=== PATIENT | male | born 1990 | race Caucasian/White ===

== ENCOUNTER 2023-11-16 16:53 | Emergency (ER) | payer SELFPAY ==
[2023-11-16 17:03] VITALS: BP 154/80; PULSE 77; TEMP 37; O2SAT 97; BMI 29.4
--- NOTE | 2023-11-16 17:10 | ED_ITS ---
HPI HPI - General Adult General Chief complaint: Nausea/Vomiting/Diarrhea Stated complaint: Nausea/Vomiting, Fever Time Seen by Provider: 11/16/23 16:56 Source: patient Mode of arrival: walk-in Limitations: no limitations History of Present Illness HPI narrative: Patient is a pleasant 33-year-old male who presents to the ER for work clearance. He reports flulike illness over the last several days. He states he is feeling better today, but he had to miss work and does not have a primary care provider who could provide him with a work excuse. He reports subjective fever, vomiting and occasional diarrhea with some abdominal cramping. He has had no significant cough or congestion. No sick contacts in the home. He denies any significant discomfort in the abdomen at this time, he reports just mild nausea. No urinary symptoms, flank or back pain. Related Data Previous Rx's ?Medication ?Instructions ?Recorded hyoscyamine sulfate 0.125 mg 0.125 mg PO Q6H PRN abdominal pain 11/16/23 tablet (Levsin) #12 tabs ondansetron 4 mg disintegrating 4 mg PO Q6H PRN nausea and 11/16/23 tablet vomiting #12 tabs Allergies Allergy/AdvReac Type Severity Reaction Status Date / Time No Known Drug Allergies Allergy Verified 11/16/23 17:03 Opioid HPI Opioid Management Most Recent Opioid Data: No Data to Display Review of Systems ROS Constitutional Reports: fever and chills Ears, nose, mouth, and throat Denies: throat pain or nasal congestion Respiratory Denies: shortness of breath Gastrointestinal Reports: abdominal pain, nausea, vomiting and diarrhea Musculoskeletal Denies: back pain or neck pain Neurological Denies: numbness in extremities or weakness in extremities Hematologic/Lymphatic Denies: easy bruising or easy bleeding PFSH PFSH Social History Little interest or pleasure in doing things: not at all Feeling down, depressed, or hopeless: not at all Exam Narrative Exam Narrative: Gen.: Awake, alert, in no distress Head: Normocephalic, atraumatic ENT: Moist mucous membranes, TMs clear, no pharyngeal erythema Respiratory: No respiratory distress, lungs clear bilaterally Cardio: Regular rate and rhythm Gastrointestinal: Abdomen is soft, nondistended and nontender to palpation Extremities: Moves extremities equally Psych: Normal mood and affect Neuro: No focal neuro deficit Skin: Warm, dry, intact Constitutional Vital Signs, click to edit/add: Last Vital Signs Temp 98.6 F 11/16/23 17:03 Pulse 77 11/16/23 17:03 Resp 18 11/16/23 17:03 BP 154/80 H 11/16/23 17:03 Pulse Ox 97 11/16/23 17:03 O2 Del Method Room Air 11/16/23 17:03 Course Vital Signs Vital signs: Vital Signs Temperature 98.6 F 11/16/23 17:03 Pulse Rate 77 11/16/23 17:03 Respiratory Rate 18 11/16/23 17:03 Blood Pressure 154/80 H 11/16/23 17:03 Pulse Oximetry 97 11/16/23 17:03 Oxygen Delivery Method Room Air 11/16/23 17:03 Temperature 98.6 F 11/16/23 17:03 Pulse Rate 77 11/16/23 17:03 Respiratory Rate 18 11/16/23 17:03 Blood Pressure 154/80 H 11/16/23 17:03 Pulse Oximetry 97 11/16/23 17:03 Oxygen Delivery Method Room Air 11/16/23 17:03 Medical Decision Making MDM Narrative Medical decision making narrative: I discussed with the patient that to further evaluate his symptoms, we would need to obtain labs, possibly viral swabs and potentially imaging of the abdomen. Patient states that he does not have any significant symptoms at this time, he is feeling better and was able to hold down his medications and start drinking fluids today. He would like to defer additional workup at this time, I feel this is reasonable as he is hemodynamically stable with a benign exam and normal vital signs. He understands that if his symptoms worsen or change, he should be reevaluated and have a workup at that time. He was provided with a work excuse, prescriptions for Levsin and Zofran. Follow-up with primary care and return to the ER if symptoms change or worsen SUPERVISED APC VISIT, PHYSICIAN ATTESTATION: Based on the medical record the care appears appropriate. ? Medical Records Medical records reviewed: Yes I reviewed the patient's medical records Discharge Plan Discharge Chief Complaint: Nausea/Vomiting/Diarrhea Clinical Impression: Flu-like symptoms Patient Disposition: Home, Self-Care Time of Disposition Decision: 17:11 Condition: Good Prescriptions / Home Meds: New hyoscyamine sulfate [Levsin] 0.125 mg tablet 0.125 mg PO Q6H PRN (Reason: abdominal pain) Qty: 12 0RF ondansetron 4 mg tablet,disintegrating 4 mg PO Q6H PRN (Reason: nausea and vomiting) Qty: 12 0RF Print Language: Ukrainian Instructions: Acute Nausea and Vomiting (ED) Additional Instructions: Please increase your fluids over the next 24-48 hours. If your symptoms change or worsen, please return to the ER or see your doctor for reevaluation Referrals: Efrain Ruvalcaba NP [Primary Care Provider] - 1 week
== END 2023-11-16 17:15 | disposition home or self-care (01) ==
PROVIDERS: Emergency Provider Emergency Medicine; PCP Nurse Practitioner Primary Care
DX: J11.1 Influenza due to unidentified influenza virus with other respiratory manifestations (principal)
CPT/HCPCS: 99283

== ENCOUNTER 2024-03-30 14:51 | Emergency (ER) | payer OTHER, SELFPAY ==
--- NOTE | 2024-03-30 14:52 | ECG_ITS ---
[facility] Test Date: 2024-03-30 Pat Name: MARTITA JON Department: Room: - Gender: Male [employer] Work[employer]: : 1990 Requested By: [id number] Order Number: [id number] Reading MD: GUSTAVO CLARK Measurements Intervals [place] Rate: 64 P: 74 SD: 114 QRS: 84 QRSD: 92 T: 55 QT: 418 QTc: 427 Interpretive Statements 1100 Sinus rhythm 2210 Short SD interval 9150 abnormal ECG Compared to ECG 04/17/2022 07:33:35 Short SD interval now present Electronically Signed On 03-31-2024 7:52:39 EST by GUSTAVO CLARK
[2024-03-30 14:56] VITALS: BP 140/88; PULSE 65; TEMP 37; O2SAT 100; BMI 28.0
--- NOTE | 2024-03-30 15:04 | ED_ITS ---
HPI HPI - General Adult General Chief complaint: Chest Pain Stated complaint: chest pain Time Seen by Provider: 03/30/24 14:52 Source: patient Mode of arrival: walk-in Limitations: no limitations History of Present Illness HPI narrative: Patient is a 33-year-old male who presents to the emergency department for chest pain, shortness of breath and vomiting. Patient states he woke up today with pain in the sternal area of his chest associated with shortness of breath. He states he drank a lot of alcohol last night, he has now begun vomiting. He has not had any fevers, cough, congestion, hemoptysis. He has not had any other recent illness. He denies any history of heart or lung problems, blood clots. He has not had any extremity swelling, vital signs are stable on arrival. He has not seen any blood in his emesis. He is dry heaving at time of evaluation. Related Data Home Medications ?Medication ?Instructions ?Recorded ?Confirmed buspirone 10 mg tablet 10 mg PO BID 03/30/24 03/30/24 hydroxyzine pamoate 25 mg capsule 25 mg PO BID PRN anxiety 03/30/24 03/30/24 sertraline 100 mg tablet 100 mg PO DAILY 03/30/24 03/30/24 Previous Rx's ?Medication ?Instructions ?Recorded ondansetron 4 mg disintegrating 4 mg PO Q6H PRN nausea and 03/30/24 tablet vomiting #12 tabs pantoprazole 40 mg tablet,delayed 40 mg PO DAILY #7 tabs 03/30/24 release (Protonix) Allergies Allergy/AdvReac Type Severity Reaction Status Date / Time No Known Drug Allergies Allergy Verified 11/16/23 17:03 Opioid HPI Opioid Management Most Recent Opioid Data: No Data to Display Review of Systems ROS Constitutional Denies: fever or chills Ears, nose, mouth, and throat Denies: throat pain or nasal congestion Cardiovascular Reports: chest pain Respiratory Reports: shortness of breath; Denies: cough Gastrointestinal Reports: nausea and vomiting; Denies: abdominal pain or diarrhea Integumentary/Breast Denies: rash Neurological Denies: numbness in extremities or weakness in extremities Hematologic/Lymphatic Denies: easy bruising or easy bleeding PFSH PFSH Social History Little interest or pleasure in doing things: not at all Feeling down, depressed, or hopeless: not at all Exam Narrative Exam Narrative: Gen.: Awake, alert, in no distress, active bilious vomiting and dry heaving Head: Normocephalic, atraumatic ENT: Moist mucous membranes Respiratory: No respiratory distress, lungs clear bilaterally Cardio: Regular rate and rhythm Gastrointestinal: Abdominal exam is limited due to vomiting, nontender Extremities: Moves extremities equally Psych: Normal mood and affect Neuro: No focal neuro deficit Skin: Warm, dry, intact Constitutional Vital Signs, click to edit/add: Last Vital Signs Temp 98.6 F 03/30/24 14:56 Pulse 70 03/30/24 16:11 Resp 20 03/30/24 16:11 BP 133/81 03/30/24 16:11 Pulse Ox 99 03/30/24 16:11 O2 Del Method Room Air 03/30/24 16:11 Course Vital Signs Vital signs: Vital Signs Temperature 98.6 F 03/30/24 14:56 Pulse Rate 65 03/30/24 14:56 Respiratory Rate 18 03/30/24 14:56 Blood Pressure 140/88 03/30/24 14:56 Pulse Oximetry 100 03/30/24 14:56 Oxygen Delivery Method Room Air 03/30/24 14:56 Temperature 98.6 F 03/30/24 14:56 Pulse Rate 70 03/30/24 16:11 Respiratory Rate 20 03/30/24 16:11 Blood Pressure 133/81 03/30/24 16:11 Pulse Oximetry 99 03/30/24 16:11 Oxygen Delivery Method Room Air 03/30/24 16:11 Medical Decision Making [facility] Narrative Medical decision making narrative: Patient given IV fluids, Zofran and Protonix with improvement. He was able to drink Gatorade in the ER without emesis. He is hemodynamically stable with normal vital signs. He has no PE risk factors. EKG is unremarkable and labs including troponin are within normal limits, lactate is elevated and lipase is minimally elevated however not high enough to qualify for acute pancreatitis. Patient will be placed on Zofran and Protonix for home. Follow-up with PCP and return to the ER if symptoms change or worsen SHARED APC VISIT, PHYSICIAN ATTESTATION: [id number] I performed a substantive part of the MDM during the patient?s E/M visit. I personally evaluated and examined the patient. I personally made or approved the documented management plan and acknowledge its risk of complications. Medical Records Medical records reviewed: Yes I reviewed the patient's medical records Lab Data Lab results reviewed: Yes I reviewed the patient's lab results Labs: Lab Results 03/30/24 03/30/24 Range/Units 15:10 15:28 WBC 7.9 (4.0-11.0) 10^3/uL RBC 5.52 (4.70-6.10) 10^6/uL Hgb 17.0 (14.0-18.0) g/dL Hct 48.3 (42.0-54.0) % MCV 87.5 (80.0-94.0) fL MCH 30.8 (25.9-34.0) pg MCHC 35.2 (29.9-35.2) g/dL RDW 12.5 (11.0-15.0) % Plt Count 293 (150-450) 10^3/uL MPV 10.6 (9.5-13.5) fL Neut % (Auto) 59.8 (43.0-75.0) % Lymph % (Auto) 28.4 (20.5-60.0) % [place] % (Auto) 6.1 (1.7-12.0) % Eos % (Auto) 4.3 (0.9-7.0) % Baso % (Auto) 1.0 (0.2-2.0) % Neut # (Auto) 4.7 (1.4-6.5) 10^3/uL Lymph # (Auto) 2.2 (1.2-3.8) 10^3/uL [place] # (Auto) 0.5 (0.3-0.8) 10^3/uL Eos # (Auto) 0.3 (0.0-0.7) 10^3/uL Baso # (Auto) 0.1 (0.0-0.1) 10^3/uL Abs Immat Gran (auto) 0.03 (0.00-0.03) 10^3/uL Imm/Tot Granulo (auto) 0.4 (0.0-0.5) % PT 11.6 (9.0-11.6) sec INR 1.11 Sodium 141 (136-145) mmol/L Potassium 3.6 (3.5-5.1) mmol/L Chloride 104 (98-107) mmol/L Carbon Dioxide 25.2 (21.0-32.0) mmol/L Anion Gap 15.4 BUN 11.0 (7.0-18.0) mg/dL Creatinine 1.07 (0.70-1.30) mg/dL Est GFR ( Amer) >60 (>=60 mL/min/1.73m^2) Est GFR (Non-Af Amer) >60 (>=60 mL/min/1.73m^2) BUN/Creatinine Ratio 10.3 Glucose 109 H (74-106) mg/dL Lactate 2.6 H* (0.4-2.0) mmol/L Calcium 9.5 (8.5-10.1) mg/dL Magnesium 1.7 L (1.8-2.4) mg/dL Total Bilirubin 0.8 (0.2-1.0) mg/dL AST 24 (15-37) U/L ALT 28 (16-63) U/L Alkaline Phosphatase 89 (46-116) U/L Troponin I High Sens <4.0 L (4.0-76.1) pg/mL NT-Pro-B Natriuret Pep 74.0 (<=450.0) pg/mL Total Protein 8.0 (6.4-8.2) g/dL Albumin 4.6 (3.4-5.0) g/dL Globulin 3.4 g/dL Albumin/Globulin Ratio 1.4 Lipase 107.0 H (16.0-77.0) U/L Imaging Data Chest x-ray: Attestation: I have reviewed the pertinent imaging results. ECG Data Attestation: I personally reviewed and interpreted this ECG as follows: (Normal sinus rhythm at a rate of 64, no acute ST elevation or ectopy. EKG reviewed by attending physician.) Discharge Plan Discharge Chief Complaint: Chest Pain Clinical Impression: Chest pain, Gastritis, Nausea & vomiting Patient Disposition: Home, Self-Care Time of Disposition Decision: 16:18 Condition: Good Prescriptions / Home Meds: New pantoprazole [Protonix] 40 mg tablet,delayed release (DR/EC) 40 mg PO DAILY Qty: 7 0RF ondansetron 4 mg tablet,disintegrating 4 mg PO Q6H PRN (Reason: nausea and vomiting) Qty: 12 0RF No Action buspirone 10 mg tablet 10 mg PO BID sertraline 100 mg tablet 100 mg PO DAILY hydroxyzine pamoate 25 mg capsule 25 mg PO BID PRN (Reason: anxiety) Print Language: Somali Instructions: Acute Nausea and Vomiting (ED), Noncardiac Chest Pain (ED) Referrals: Physician,Non-Staff, MD [Primary Care Provider] - 1 week
--- OUTSIDE RECORDS SUMMARY | 2024-03-30 15:09 | XMS_ITS | CCD ---
Author Organization [facility] CliniSyde Care Team Providers Care Roller Operator Name Role Phone RejiYazmin sanchez Vince Primary Care Physician CESAR OLIVARES Attending Unavailable GRACY ., CESAR Consulting Unavailable GRACY ., CESAR Admitting Unavailable REQUEST, NONE LISTED Primary Care Unavaila CORINA Pink Consulting Unavailable DIAB ., ASAF Attending Unavailable FIDEL ., ASAF Admitting Unavailable REQUEST, NONE LISTED Primary Care Unavaila ble DIAB ., ASAF Consulting Unavailable Husam DESHPANDE Attending Unavailable Problems Problem Classification Problem Date Documented Da te Episodic/Chronic Anxiety disorders (6 sources) Anxiety disorder; Translations: [Anxiety disorder, unspecified] Onset: 04-12-2022 Chronic Esophageal disorders (1 source) Gastro-esophageal reflux disease without esophagitis; Translations: [GERD WITHOUT ESOPHAGITIS] Onset: 04-15-2022 Chronic Nonspecific chest pain (5 sources) Chest pain; Translations: [Chest pain, unspecified] Onset: 04-12-2022 Episodic Other aftercare (1 source) Other fpc (current) drug therapy; Translations: [OTH ALF CURRENT DRUG THERAPY] Onset: 04-19-2022 Episodic Substance-related disorders (1 source) Nicotine dependence, cigarettes, uncomplicated; Translations: [NICOTINE DEPEND CIGARETTES UNCOMP] Onset: 04-15-2022 Chronic Results Test Name Value Interpretation Reference Range Facility Registrationon 06-08-2023 Registration [id number]# 1.00TIFF Normal [facility] XR CHEST 1 Von 04-14-2022 XR CHEST 1 V EXAM: XR CHEST 1 V HISTORY: CHEST PAIN, UNSPECIFIED COMPARISON: None. FINDINGS: 1 view(s) of the chest. The lungs are clear without focal consolidation or pleural effusion. There is no pneumothorax. The cardiomediastinal silhouette is normal. IMPRESSION: No acute cardiopulmonary abnormality. Electronically authenticated by: CORINA HUERTA Date: 2022-04-13 23:43 Normal [facility] [place] CHEMISTRYOrdered By: SYSTEM SYSTEM on 04-12-2022 Anion gap [Moles/Vol] 16 mmol/L Normal 6 - 16 mEq/L [facility] Calcium [Mass/Vol] 9.4 mg/dL Normal 8.9 - 11. 1 mg/dL [facility] Remisol Chloride [Moles/Vol] 103 mmol/L Normal 101 - 1 11 mmol/L [facility] CO2 [Moles/Vol] 23 mmol/L Normal 21 - 31 mmol/L [facility] Creatinine [Mass/Vol] 0.8 mg/dL Normal 0.5 - 1.3 mg/dL [facility] Remisol GFR/1.73 sq M.predicted among blacks MDRD (S/P/Bld) [Vol rate/Area] mL/min/1.73 m2 Normal >=59mL/min/1.7 3 m2 [facility] Chem S GFR/1.73 sq M.predicted among non-blacks MDRD (S/P/Bld) [Vol rate/Area] mL/min/1.73 m2 Normal >=59mL/min/1.7 3 m2 [facility] Chem S Glucose [Mass/Vol] 92 mg/dL Normal 55 - 199 mg/dL [facility] Remisol Potassium [Moles/Vol] 4.1 mmol/L Normal 3.5 - 5.3 mmol/L [facility]isol Sodium [Moles/Vol] 138 mmol/L Normal 135 - 145 mmol/L [facility] Troponin I.cardiac [Mass/Vol] 3.00 pg/mL Low 15.90 - 38.40 pg/mL [facility] Urea nitrogen [Mass/Vol] 7 mg/dL Normal 5 - 21 mg/dL [facility] Urea nitrogen/Creatinine [Mass ratio] 9 mg/mg Low 10 - 20 [facility] Remisol HEMATOLOGYOrdered By: SYSTEM SYSTEM on 04-12-2022 Basophils/100 WBC (Bld) 0.6 % Normal 0.0 - 2.0 % FT HemeAutoSS Basophils/Leukocytes Auto (Bld) [Pure # fraction] 0.0 E9/L Normal 0.0 - 0.2 E9/L [facility] HemeAutoSS Eosinophils/100 WBC (Bld) 3.2 % Normal 0.0 - 8.0 % [facility] HemeAutoSS Eosinophils/Leukocytes Auto (Bld) [Pure # fraction] 0.2 E9/L Normal 0.0 - 0.5 E9/L [facility] HemeAutoSS Lymphocytes/100 WBC (Bld) 24.8 % Normal 14.0 - 50.0 % [facility] HemeAutoSS Lymphocytes/Leukocytes Auto (Bld) [Pure # fraction] 1.7 E9/L Normal 1.0 - 4.0 E9/L [facility] HemeAutoSS Monocytes/100 WBC (Bld) 7.2 % Normal 4.0 - 14.0 % [facility] HemeAutoSS Monocytes/Leukocytes Auto (Bld) [Pure # fraction] 0.5 E9/L Normal 0.2 - 1.0 E9/L [facility] HemeAutoSS Neutrophils/100 WBC (Bld) 64.2 % Normal 36.0 - 75.0 % [facility] HemeAutoSS Neutrophils/Leukocytes Auto (Bld) [Pure # fraction] 4.4 E9/L Normal 2.0 - 7.5 E9/L [facility] HemeAutoSS HEMATOLOGYOrdered By: Ghada Leon on 04-12-2022 Erythrocyte distribution width (RBC) [Ratio] 13.5 % Normal 10.9 - 14.2 % [facility] HemeAutoSS Hematocrit (Bld) [Volume fraction] 44.7 % Normal 37.7 - 49.0 % [facility] HemeAutoSS Hemoglobin (Bld) [Mass/Vol] 15.1 g/dL Normal 13.5 - 17.5 gm/dL [facility] HemeAutoSS MCH (RBC) [Entitic mass] 29.9 pg Normal 27.0 - 34.0 pg [facility]eAutoSS MCHC (RBC) [Mass/Vol] 33.9 g/dL Normal 31.4 - 36.0 gm/dL [facility] HemeAutoSS MCV (RBC) [Entitic vol] 88.2 fL Normal 80.0 - 100.0 fL [facility] HemeAutoSS Platelet mean volume (Bld) [Entitic vol] 8.4 fL Normal 6.4 - 10.8 fL [facility] HemeAutoSS Platelets (Bld) [#/Vol] 212.0 E9/L Normal 150.0 - 500.0 E9/L [facility] HemeAutoSS RBC (Bld) [#/Vol] 5.1 E12/L Normal 4.3 - 5.9 E12/L [facility] HemeAutoSS WBC corrected for nucl RBC Auto (Bld) [#/Vol] 6.9 E9/L Normal 4.0 - 11.0 E9/L [facility] HemeAutoSS Vital Signs Date Time Vital Sign Value Performing Clinician Jose Daniel acuña 04-12-2022 13:00-0500 Diastolic blood pressure 58 mm[Hg] [facility] 04-12-2022 13:00-0500 Heart rate 84 /min [facility] 04-12-2022 13:00-0500 Mean blood pressure 66 mm[Hg] [facility] 04-12-2022 13:00-0500 Respiratory rate 14 /min [facility] 04-12-2022 13:00-0500 SaO2% (BldA) [Mass fraction] 98 % [facility] 04-12-2022 13:00-0500 Systolic blood pressure 82 mm[Hg] [facility] 04-12-2022 12:59-0500 Hourly Rounding [facility] 04-12-2022 12:00-0500 Diastolic blood pressure 85 mm[Hg] [facility] 04-12-2022 12:00-0500 Heart rate 82 /min [facility] 04-12-2022 12:00-0500 Hourly Rounding [facility] 04-12-2022 12:00-0500 Mean blood pressure 98 mm[Hg] [facility] 04-12-2022 12:00-0500 Systolic blood pressure 123 mm[Hg] [facility] 04-12-2022 11:17-0500 Diastolic blood pressure 77 mm[Hg] [facility] 04-12-2022 11:17-0500 Heart rate 72 /min [facility] 04-12-2022 11:17-0500 Hourly Rounding [facility] 04-12-2022 11:17-0500 Mean blood pressure 89 mm[Hg] [facility] 04-12-2022 11:17-0500 Respiratory rate 18 /min [facility] 04-12-2022 11:17-0500 SaO2% (BldA) [Mass fraction] 99 % [facility] 04-12-2022 11:17-0500 Systolic blood pressure 113 mm[Hg] [facility] 04-12-2022 09:53-0500 Body temperature 98.6 [degF] [facility] 04-12-2022 09:53-0500 Heart rate 77 /min [facility] Encounters Encounter Date Encounter Type Care Provider Facility Start: 06-29-2023 End: 06-29-2023 ambulatory Not Available Start: 06-08-2023 End: 06-09-2023 ambulatory Husam DESHPANDE Facility:[facility] Start: 04-17-2022 End: 04-17-2022 ambulatory CESAR Dobbs Facility: Start: 04-14-2022 End: 04-14-2022 ambulatory CORINA HUERTA Facility:[facility] Start: 04-12-2022 End: 04-12-2022 Emergency department patient visit [facility] Payers Date Payer Category Payer Self-pay 1990 Unknown [id number] 1990 Unknown [id number] 1990 Unknown [id number] 1957 Medicaid [id number] 1957 Self-pay [id number] Social History Date Type Detail Facility Start: 04-12-2022 Tobacco smoking status Never s moked tobacco (finding) [facility] Tobacco smoking status Never [facility] Sex Assigned At Male [facility] Functional Status Date Assessment Result Facility 04-12-2022 Functional Status N/A [facility] Discharge instructions 04-12-2022 Note Date & Type Note Facility 04-12-2022 Hospital Discharg e instructions Patient Education 04/12/2022 13:04:38 Nonspecific Chest Pain, Adult Nonspecific Chest Pain, Adult Chest pain can be caused by many different conditions. It can be caused by a condition that is life-threatening and requires treatment right away. It can also be caused by something that is not life-threatening. If you have chest pain, it can be hard to know the difference, so it is important to get help right away to make sure that you do not have a serious condition. Some life-threatening causes of chest pain include: Heart attack. A tear in the body's main blood vessel (aortic dissection). Inflammation around your heart (pericarditis). A problem in the lungs, such as a blood clot (pulmonary embolism) or a collapsed lung (pneumothorax). Some non life-threatening causes of chest pain include: Heartburn. Anxiety or stress. Damage to the bones, muscles, and cartilage that make up your chest wall. Pneumonia or bronchitis. Shingles infection (varicella-zoster virus). Chest pain can feel like: Pain or discomfort on the surface of your chest or deep in your chest. Crushing, pressure, aching, or squeezing pain. Burning or tingling. Dull or sharp pain that is worse when you move, cough, or take a deep breath. Pain or discomfort that is also felt in your back, neck, jaw, shoulder, or arm, or pain that spreads to any of these areas. Your chest pain may come and go. It may also be constant. Your health care provider will do lab tests and other studies to find the cause of your pain. Treatment will depend on the cause of your chest pain. Follow these instructions at home: Medicines Take enhx-zcv-slvgagw and prescription medicines only as told by your health care provider. If you were prescribed an antibiotic, take it as told by your health care provider. Do not stop taking the antibiotic even if you start to feel better. Lifestyle Rest as directed by your health care provider. Do not use any products that contain nicotine or tobacco, such as cigarettes and e-cigarettes. If you need help quitting, ask your health care provider. Do not drink alcohol. Make healthy lifestyle choices as recommended. These may include: ?Getting regular exercise. Ask your health care provider to suggest some activities that are safe for you. ?Eating a heart-healthy diet. This includes plenty of fresh fruits and vegetables, whole grains, low-fat (lean) protein, and low-fat dairy products. A dietitian can help you find healthy eating options. ?Maintaining a healthy weight. ?Managing any other health conditions you have, such as high blood pressure (hypertension) or diabetes. ?Reducing stress, such as with yoga or relaxation techniques. General instructions Pay attention to any changes in your symptoms. Tell your health care provider about them or any new symptoms. Avoid any activities that cause chest pain. Keep all follow-up visits as told by your health care provider. This is important. This includes visits for any further testing if your chest pain does not go away. Contact a health care provider if: Your chest pain does not go away. You feel depressed. You have a fever. Get help right away if: Your chest pain gets worse. You have a cough that gets worse, or you cough up blood. You have severe pain in your abdomen. You faint. You have sudden, unexplained chest discomfort. You have sudden, unexplained discomfort in your arms, back, neck, or jaw. You have shortness of breath at any time. You suddenly start to sweat, or your skin gets clammy. You feel nausea or you vomit. You suddenly feel lightheaded or dizzy. You have severe weakness, or unexplained weakness or fatigue. Your heart begins to beat quickly, or it feels like it is skipping beats. These symptoms may represent a serious problem that is an emergency. Do not wait to see if the symptoms will go away. Get medical help right away. Call your local emergency services (911 in the [place] Do not drive yourself to the hospital. Summary Chest pain can be caused by a condition that is serious and requires urgent treatment. It may also be caused by something that is not life-threatening. If you have chest pain, it is very important to see your health care provider. Your health care provider may do lab tests and other studies to find the cause of your pain. Follow your health care provider's instructions on taking medicines, making lifestyle changes, and getting emergency treatment if symptoms become worse. Keep all follow-up visits as told by your health care provider. This includes visits for any further testing if your chest pain does not go away. This information is not intended to replace advice given to you by your health care provider. Make sure you discuss any questions you have with your health care provider. Document Released: 11/03/2005 Document Revised: 07/27/2018 Document Reviewed: 07/27/2018 [employer] Patient Education 2020 [employer]. 04/12/2022 13:04:38 Managing Anxiety, Adult Managing Anxiety, Adult After being diagnosed with an anxiety disorder, you may be relieved to know why you have felt or behaved a certain way. You may also feel overwhelmed about the treatment ahead and what it will mean for your life. With care and support, you can manage this condition and recover from it. How to manage lifestyle changes Managing stress and anxiety Stress is your body's reaction to life changes and events, both good and bad. Most stress will last just a few hours, but stress can be ongoing and can lead to more than just stress. Although stress can play a major role in anxiety, it is not the same as anxiety. Stress is usually caused by something external, such as a deadline, test, or competition. Stress normally passes after the triggering event has ended. Anxiety is caused by something internal, such as imagining a terrible outcome or worrying that something will go wrong that will devastate you. Anxiety often does not go away even after the triggering event is over, and it can become long-term (chronic) worry. It is important to understand the differences between stress and anxiety and to manage your stress effectively so that it does not lead to an anxious response. Talk with your health care provider or a counselor to learn more about reducing anxiety and stress. He or she may suggest tension reduction techniques, such as: Music therapy. This can include creating or listening to music that you enjoy and that inspires you. Mindfulness-based meditation. This involves being aware of your normal breaths while not trying to control your breathing. It can be done while sitting or walking. Centering prayer. This involves focusing on a word, phrase, or sacred image that means something to you and brings you peace. Deep breathing. To do this, expand your stomach and inhale slowly through your nose. Hold your breath for 3 5 seconds. Then exhale slowly, letting your stomach muscles relax. Self-talk. This involves identifying thought patterns that lead to anxiety reactions and changing those patterns. Muscle relaxation. This involves tensing muscles and then relaxing them. Choose a tension reduction technique that suits your lifestyle and personality. These techniques take time and practice. Set aside 5 15 minutes a day to do them. Therapists can offer counseling and training in these techniques. The training to help with anxiety may be covered by some insurance plans. Other things you can do to manage stress and anxiety include: Keeping a stress/anxiety diary. This can help you learn what triggers your reaction and then learn ways to manage your response. Thinking about how you react to certain situations. You may not be able to control everything, but you can control your response. Making time for activities that help you relax and not feeling guilty about spending your time in this way. Visual imagery and yoga can help you stay calm and relax. Medicines Medicines can help ease symptoms. Medicines for anxiety include: Anti-anxiety drugs. Antidepressants. Medicines are often used as a primary treatment for anxiety disorder. Medicines will be prescribed by a health care provider. When used together, medicines, psychotherapy, and tension reduction techniques may be the most effective treatment. Relationships Relationships can play a big part in helping you recover. Try to spend more time connecting with trusted friends and family members. Consider going to couples counseling, taking family education classes, or going to family therapy. Therapy can help you and others better understand your condition. How to recognize changes in your anxiety Everyone responds differently to treatment for anxiety. Recovery from anxiety happens when symptoms decrease and stop interfering with your daily activities at home or work. This may mean that you will start to: Have better concentration and focus. Worry will interfere less in your daily thinking. Sleep better. Be less irritable. Have more energy. Have improved memory. It is important to recognize when your condition is getting worse. Contact your health care provider if your symptoms interfere with home or work and you feel like your condition is not improving. Follow these instructions at home: Activity Exercise. Most adults should do the following: ?Exercise for at least 150 minutes each week. The exercise should increase your heart rate and make you sweat (moderate-intensity exercise). ?Strengthening exercises at least twice a week. Get the right amount and quality of sleep. Most adults need 7 9 hours of sleep each night. Lifestyle Eat a healthy diet that includes plenty of vegetables, fruits, whole grains, low-fat dairy products, and lean protein. Do not eat a lot of foods that are high in solid fats, added sugars, or salt. Make choices that simplify your life. Do not use any products that contain nicotine or tobacco, such as cigarettes, e-cigarettes, and chewing tobacco. If you need help quitting, ask your health care provider. Avoid caffeine, alcohol, and certain szdz-qwn-wwqbctt cold medicines. These may make you feel worse. Ask your pharmacist which medicines to avoid. General instructions Take hkuj-ihq-atyjjwm and prescription medicines only as told by your health care provider. Keep all follow-up visits as told by your health care provider. This is important. Where to find support You can get help and support from these sources: Self-help groups. Online and community organizations. A trusted spiritual leader. Couples counseling. Family education classes. Family therapy. Where to find more information You may find that joining a support group helps you deal with your anxiety. The following sources can help you locate counselors or support groups near you: Mental Health [place]: www.mentalhealthamerica.net Anxiety and Depression Association of [place] (ADAA): www.adaa.org National [place] on Mental Illness (HORTENCIA): www.hortencia.org Contact a health care provider if you: Have a hard time staying focused or finishing daily tasks. Spend many hours a day feeling worried about everyday life. Become exhausted by worry. Start to have headaches, feel tense, or have nausea. Urinate more than normal. Have diarrhea. Get help right away if you have: A racing heart and shortness of breath. Thoughts of hurting yourself or others. If you ever feel like you may hurt yourself or others, or have thoughts about taking your own life, get help right away. You can go to your nearest emergency department or call: Your local emergency services (911 in the [place] A suicide crisis helpline, such as the National Suicide Prevention Lifeline at . This is open 24 hours a day. Summary Taking steps to learn and use tension reduction techniques can help calm you and help prevent triggering an anxiety reaction. When used together, medicines, psychotherapy, and tension reduction techniques may be the most effective treatment. Family, friends, and partners can play a big part in helping you recover from an anxiety disorder. This information is not intended to replace advice given to you by your health care provider. Make sure you discuss any questions you have with your health care provider. Document Released: 01/18/2017 Document Revised: 06/26/2019 Document Reviewed: 06/26/2019 [employer] Patient Education 2020 [employer]. Follow Up Care 04/12/2022 09:51:31 With:Yazmin Mendoza Address: [address] [place] [address]- Business (1) When:04/15/2022 12:59:16 [facility] Evaluation + Plan note Note Date & Type Note Facility Evaluation + Plan note No data available for this section [facility] Progress note Note Date & Type Note Facility Progress note No data available for this section [facility] Summary Purpose Family History No Family History Records FoundNo Family History Records FoundNo Family History Records Found Advance Directives No Advanced Directives Records FoundNo Advanced Directives Records FoundNo Advanced Directives Records Found Additional Source Comments Patient Care team informatio n (unrecognized section and content) Personnel Name: Yazmin Mendoza MD Address: Address: [address] [place] [address]- (unrecognized sect ion and content) No Status Records FoundNo Status Records FoundNo Status Records Found INFORMATION SOURCE (unrecogn ized section and content) DATE CREATED AUTHOR 05/14/2022 [facility] DATE CREATED AUTHOR AUTHOR'S ORGANIZ ATION 06/10/2023 [facility] DATE CREATED AUTHOR AUTHOR'S ORGANIZ ATION 07/02/2023 [facility] FOR RECORDS PERTAINING TO PATIENTS WHO ARE OR HAVE BEEN ENROLLED IN A CHEMICAL DEPENDENCY/SUBSTANCEABUSE PROGRAM, SOME INFORMATION MAY BE OMITTED. This clinical summary was aggregated from multiple sources. Caution should be exercised in using it in the provision of clinical care. This summary normalizes information from multiple sources, and as a consequence, information in this document may materially change the coding, format and clinical context of patient data. In addition, data may be omitted in some cases. CLINICAL DECISIONS SHOULD BE BASED ON THE PRIMARY CLINICAL RECORDS. [facility]. provides no warranty or guarantee of the accuracy or completeness of information in this document.
[2024-03-30 15:19] LABS: Basophils Absolute Auto 0.1 10^3/uL (0.0-0.1); Eosinophils Absolute Auto 0.3 10^3/uL (0.0-0.7); Eosinophils Percent Auto 4.3 % (0.9-7.0); Hematocrit 48.3 % (42.0-54.0); Immature Granulocytes Abs Auto 0.03 10^3/uL (0.00-0.03); Immature Granulocytes Pct Auto 0.4 % (0.0-0.5); Lymphocytes Absolute Auto 2.2 10^3/uL (1.2-3.8); Lymphocytes Percent Auto 28.4 % (20.5-60.0); Mean Corpuscular HGB Conc 35.2 g/dL (29.9-35.2); Mean Corpuscular Hemoglobin 30.8 pg (25.9-34.0); Mean Corpuscular Volume 87.5 fL (80.0-94.0); Mean Platelet Volume 10.6 fL (9.5-13.5); Monocytes Absolute Auto 0.5 10^3/uL (0.3-0.8); Monocytes Percent Auto 6.1 % (1.7-12.0); Neutrophils Absolute Auto 4.7 10^3/uL (1.4-6.5); Neutrophils Percent Auto 59.8 % (43.0-75.0); Platelet Count 293 10^3/uL (150-450); Red Blood Count 5.52 10^6/uL (4.70-6.10); Red Cell Distribution Width 12.5 % (11.0-15.0); White Blood Count 7.9 10^3/uL (4.0-11.0)
[2024-03-30] MEDS: ONDANSETRON PF 4 MG/2 ML VIAL IV (15:19)
[2024-03-30] MEDS: 0.9 % SODIUM CHLORIDE 1,000 ML 1000 ML IV (15:19)
[2024-03-30] MEDS: PANTOPRAZOLE SODIUM 40 MG VIAL IV (15:20)
[2024-03-30 15:42] LABS: Alanine Aminotransferase 28 U/L (16-63); Albumin Globulin Ratio 1.4; Albumin Level 4.6 g/dL (3.4-5.0); Alkaline Phosphatase 89 U/L (46-116); Anion Gap 15.4; Aspartate Amino Transferase 24 U/L (15-37); BUN Creatinine Ratio 10.3; Bilirubin Total 0.8 mg/dL (0.2-1.0); Calcium 9.5 mg/dL (8.5-10.1); Carbon Dioxide 25.2 mmol/L (21.0-32.0); Chloride 104 mmol/L (98-107); Estimated GFR (African America >60 (>=60 mL/min/1.73m^2); Estimated GFR (Non-African Ame >60 (>=60 mL/min/1.73m^2); Globulin 3.4 g/dL; Glucose 109 mg/dL (74-106); Magnesium 1.7 mg/dL (1.8-2.4); Potassium 3.6 mmol/L (3.5-5.1); Sodium 141 mmol/L (136-145); Troponin I High Sensitivity <4.0 pg/mL (4.0-76.1)
[2024-03-30 15:43] LABS: Lactate/Lactic Acid 2.6 mmol/L (0.4-2.0)
[2024-03-30 15:46] LABS: INR 1.11; Prothrombin Time 11.6 sec (9.0-11.6)
[2024-03-30 16:11] VITALS: BP 133/81; PULSE 70; O2SAT 99
== END 2024-03-30 16:31 | disposition home or self-care (01) ==
PROVIDERS: Physician Assistant; Emergency Provider Emergency Medicine
DX: R07.89 Other chest pain (principal); K29.70 Gastritis, unspecified, without bleeding; R11.2 Nausea with vomiting, unspecified; R06.02 Shortness of breath
CPT/HCPCS: 36415; 71045; 80053; 83605; 83690; 83735; 83880; 84484; 85025; 85610; 93005; 96361; 96374; 96375; 99285; J2405

== ENCOUNTER 2024-05-23 11:47 | Outpatient (OUT) | payer OTHER, SELFPAY ==
--- NOTE | 2024-05-23 11:54 | XR_ITS ---
[address] [address] Patient Name: MARTITA JON MRN: [id number] date: 1990 Sex: M Assigned Patient Location: RAD Current Patient Location: [facility] Accession/Order Number: [id number] Exam Date: 05/23/2024 13:59 Report Date: 05/23/2024 14:00 At the request of: JOSHUA JENKINS NP Procedure: XR knee RT 4V 4 views right knee plain film COMPARISON: None HISTORY: Right knee pain for 2 days ACUTE FINDINGS: No acute findings DEGENERATIVE CHANGE: Superior patellar enthesophyte SOFT TISSUE FINDINGS: Unremarkable JOINT EFFUSION: None POSTOP CHANGES: None BONE MINERALIZATION: Adequate XR/XR knee RT 4V IMPRESSION: Unremarkable exam Impression dictated by: Husam Gold M.D.05/23/2024 2:00 PM Dictation Location: [place] [address] Electronically authenticated by: [id number] Date: 05/23/2024 14:00
--- OUTSIDE RECORDS SUMMARY | 2024-05-23 12:02 | XMS_ITS | CCD ---
Author Organization [facility] Care Team Providers Care Customer Engineering Specialist Name Role Phone RejiYazmin sanchez Vince Primary Care Physician [phone] CESAR OLIVARES Attending Unavailable GRACY ., CESAR [...] 04-12-2022 Episodic Other aftercare (1 source) Other residential (current) drug therapy; Translations: [OTH NURSING HOME CURRENT DRUG THERAPY] Onset: 04-19-2022 Episodic Substance-related disorders (1 source) Nicotine dependence, cigarettes, uncomplicated; Translations: [NICOTINE DEPEND CIGARETTES UNCOMP] Onset: 04-15-2022 Chronic Results Test Name Value Interpretation Reference Range Facility Registrationon 06-08-2023 Registration [id number]# [id number] Normal [facility] XR CHEST 1 Von 04-14-2022 XR CHEST 1 V EXAM: XR CHEST 1 V HISTORY: CHEST PAIN, UNSPECIFIED COMPARISON: None. FINDINGS: 1 view(s) of the chest. The lungs are clear without focal consolidation or pleural effusion. There is no pneumothorax. The cardiomediastinal silhouette is normal. IMPRESSION: No acute cardiopulmonary abnormality. Electronically authenticated by: CORINA HUERTA Date: 2022-04-13 23:43 Normal [facility] CHEMISTRYOrdered By: SYSTEM SYSTEM on 04-12-2022 Anion gap [Moles/Vol] 16 mmol/L Normal 6 - 16 mEq/L [facility] Remisol Calcium [Mass/Vol] 9.4 mg/dL Normal 8.9 [...] rate/Area] mL/min/1.73 m2 Normal >=59mL/min/1.7 3 m2 [facility] Chem S Glucose [Mass/Vol] 92 mg/dL Normal [...] 5.1 E12/L Normal 4.3 - 5.9 E12/L [facility] HemeAutoSS WBC corrected for nucl RBC Auto (Bld) [#/Vol] 6.9 E9/L Normal 4.0 - 11.0 E9/L [facility] HemeAuto[facility] Vital Signs Date Time Vital Sign Value Performing Clinician Jose Daniel acuña 04-12-2022 13:00-0500 Diastolic blood pressure 58 mm[Hg] Guerrero Chaudhrye [facility] 04-12-2022 13:00-0500 Heart rate 84 /min Guerrero Chaudhrye [facility] 04-12-2022 13:00-0500 Mean blood pressure 66 mm[Hg] Guerrero Chaudhrye [facility] 04-12-2022 13:00-0500 Respiratory rate 14 /min Guerrero Chaudhrye [facility] 04-12-2022 13:00-0500 SaO2% (BldA) [Mass fraction] 98 % Guerrero Chaudhrye [facility] 04-12-2022 13:00-0500 Systolic blood pressure 82 mm[Hg] Guerrero Chaudhrye [facility] 04-12-2022 12:59-0500 Hourly Rounding Guerrero Chaudhrye [facility] 04-12-2022 12:00-0500 Diastolic blood pressure 85 mm[Hg] Guerrero Chaudhrye [facility] 04-12-2022 12:00-0500 Heart rate 82 /min Guerrero Chaudhrye [facility] 04-12-2022 12:00-0500 Hourly Rounding Guerrero Mancilla [facility] 04-12-2022 12:00-0500 Mean blood pressure 98 mm[Hg] Guerrero Chaudhrye [facility] 04-12-2022 12:00-0500 Systolic blood pressure 123 mm[Hg] Guerrero Mancilla [facility] 04-12-2022 11:17-0500 Diastolic blood pressure 77 mm[Hg] Guerrero Mancilla [facility] 04-12-2022 11:17-0500 Heart rate 72 /min Guerrero Mancilla [facility] 04-12-2022 11:17-0500 Hourly Rounding Guerrero Mancilla [facility] 04-12-2022 11:17-0500 Mean blood pressure 89 mm[Hg] Guerrero Mancilla [facility] 04-12-2022 11:17-0500 Respiratory rate 18 /min Guerrero Mancilla [facility] 04-12-2022 11:17-0500 SaO2% (BldA) [Mass fraction] 99 % Guerrero Mancilla [facility] 04-12-2022 11:17-0500 Systolic blood pressure 113 mm[Hg] Guerrero Mancilla [facility] 04-12-2022 09:53-0500 Body temperature 98.6 [degF] Guerrero Mancilla [facility] 04-12-2022 09:53-0500 Heart rate 77 /min Guerrero Chaudhrye [facility] Encounters Encounter Date Encounter Type Care Provider Facility Start: 06-29-2023 End: 06-29-2023 ambulatory Not Available Start: 06-08-2023 End: 06-09-2023 ambulatory Husam DESHPANDE Facility:[facility] Start: 04-17-2022 End: 04-17-2022 ambulatory CESAR Dobbs Facility: Start: 04-14-2022 End: 04-14-2022 ambulatory CORINA HUERTA Facility:[facility] Start: 04-12-2022 End: 04-12-2022 Emergency department patient visit Guerrero Mancilla [facility] Payers Date Payer Category Payer Self-pay 1990 Unknown [id number] 1990 Unknown [id number] 1992 Unknown [id number] 1957 Medicaid [id number] 1957 Self-pay [id number] Social History Date Type Detail Facility Start: 04-12-2022 Tobacco smoking status Never s moked tobacco (finding) [facility] Sex Assigned At Male [facility] Functional Status Date Assessment Result Facility 04-12-2022 Functional Status N/A [facility] Discharge instructions 04-12-2022 Note Date & [...] Follow these instructions at home: Medicines Take ddbl-iia-czbfuqd and prescription medicines only as told by [...] 11/03/2005 Document Revised: 07/27/2018 Document Reviewed: 07/27/2018 [email or web address] Patient Education 2020 [employer]. 04/12/2022 13:04:38 Managing Anxiety, Adult Managing Anxiety, [...] care provider. Avoid caffeine, alcohol, and certain dhma-lhr-bxrirzi cold medicines. These may make you feel worse. Ask your pharmacist which medicines to avoid. General instructions Take grpb-kwl-rpcoimi and prescription medicines only as told by [...] Depression Association of [place] (ADAA): www.adaa.org National [place] [employer] Mental Illness (HORTENCIA): www.hortencia.org Contact a [...] 01/18/2017 Document Revised: 06/26/2019 Document Reviewed: 06/26/2019 [email or web address] Patient Education 2020 [employer]. Follow Up Care 04/12/2022 09:51:31 With:Yazmin Mendoza Address: [address] [place] [address]- Business (1) When:04/15/2022 12:59:16 [facility] Evaluation + Plan note Note Date & Type Note Facility Evaluation + Plan note No data available for this section [facility] Progress note Note Date & Type Note Facility Progress note No data available for this section [facility] Summary Purpose Family History No Family History Records FoundNo Family History Records FoundNo Family History Records Found Advance Directives No Advanced Directives Records FoundNo Advanced Directives Records FoundNo Advanced Directives Records Found Additional Source Comments Patient Care team informatio n (unrecognized section and content) Personnel Name: Yazmin Mendoza MD Address: Address: [address] [place] [address]- (unrecognized sect ion and content) No Status Records FoundNo Status Records FoundNo Status Records Found INFORMATION SOURCE (unrecogn ized section and content) DATE CREATED AUTHOR 05/14/2022 [facility] DATE CREATED AUTHOR AUTHOR'S ORGANIZ ATION 06/10/2023 [facility] DATE CREATED AUTHOR AUTHOR'S ORGANIZ ATION 07/02/2023 [facility] d[facility] Specialists [facility] FOR RECORDS PERTAINING TO PATIENTS WHO [...] BE BASED ON THE PRIMARY CLINICAL RECORDS. [facility] [employer] [facility]. provides no warranty or guarantee of the accuracy or completeness of information in this document.
== END 2024-05-23 11:48 | disposition home or self-care (01) ==
DX: M25.561 Pain in right knee (principal)
CPT/HCPCS: 73564

== ENCOUNTER 2024-06-09 17:40 | Emergency (ER) | payer OTHER, SELFPAY ==
[2024-06-09 17:43] VITALS: BP 123/80; PULSE 79; TEMP 36.4; O2SAT 100; BMI 25.1
--- NOTE | 2024-06-09 17:48 | PC.NURSE ---
Pain and swelling to left outer ankle.. Skin to left foot and leg pink and warm and pulses present. Ice pack applied.
--- NOTE | 2024-06-09 18:47 | ED.GENADUL1 ---
HPI HPI - General Adult General Chief complaint: Extremity Injury, Lower Stated complaint: injured L ankle Time Seen by Provider: 06/09/24 17:46 Source: patient Mode of arrival: walk-in Limitations: no limitations History of Present Illness HPI narrative: 33-year-old male presents here chief complaint of left ankle injury. He states he rolled it playing basketball. Soft tissue swelling is noted. Patient denies any previous fracture or trauma to this extremity. He is otherwise healthy. No other injuries noted. Soft tissue swelling the left lateral tibial area. He is able to ambulate. Patient states he took 800 mg ibuprofen prior to arrival. Related Data Home Medications ?Medication ?Instructions ?Recorded ?Confirmed buspirone 10 mg tablet 10 mg PO BID 03/30/24 03/30/24 hydroxyzine pamoate 25 mg capsule 25 mg PO BID PRN anxiety 03/30/24 03/30/24 sertraline 100 mg tablet 100 mg PO DAILY 03/30/24 03/30/24 Previous Rx's ?Medication ?Instructions ?Recorded ondansetron 4 mg disintegrating 4 mg PO Q6H PRN nausea and 03/30/24 tablet vomiting #12 tabs pantoprazole 40 mg tablet,delayed 40 mg PO DAILY #7 tabs 03/30/24 release (Protonix) ibuprofen 800 mg tablet 800 mg PO Q8H PRN pain #20 tabs 06/09/24 Allergies Allergy/AdvReac Type Severity Reaction Status Date / Time No Known Drug Allergies Allergy Verified 06/09/24 17:43 Review of Systems ROS Status of ROS 10 or more systems reviewed and unremarkable except as noted in history and below PFSH PFSH Social History Little interest or pleasure in doing things: not at all Feeling down, depressed, or hopeless: not at all Exam Narrative Exam Narrative: All Systems are negative except as noted/marked.All systems reviewed and otherwise negative Nurses note and vital signs reviewed and patient is not hypoxic. General: The patient appears well and in no apparent distress. Patient is resting comfortably on cart. Skin: Warm, dry, no pallor noted. There is no rash noted. Head: Normocephalic, atraumatic Eye: Normal conjunctiva, no drainage, EOMI. PERRL Ears, Nose, Mouth, and Throat: oral mucosa is moist. Nares patent. Mouth without vesicles. Ear canals patent. Tm's without Erythema Cardiovascular: Regular Rate and Rhythm Musculoskeletal: Swelling patient able ambulate, neurovascular intact good capillary fill distally no obvious dislocation or deformity. The patient has no evidence of calf tenderness, no pitting edema, symmetrical pulses noted bilaterally Neurological: A&O x4, normal speech Psychiatric: Cooperative Constitutional Vital Signs, click to edit/add: Last Vital Signs Temp 97.5 F L 06/09/24 17:43 Pulse 79 06/09/24 17:43 Resp 20 06/09/24 17:43 BP 123/80 06/09/24 17:43 Pulse Ox 100 06/09/24 17:43 O2 Del Method Room Air 06/09/24 17:43 Course Vital Signs Vital signs: Vital Signs Temperature 97.5 F L 06/09/24 17:43 Pulse Rate 79 06/09/24 17:43 Respiratory Rate 20 06/09/24 17:43 Blood Pressure 123/80 06/09/24 17:43 Pulse Oximetry 100 06/09/24 17:43 Oxygen Delivery Method Room Air 06/09/24 17:43 Temperature 97.5 F L 06/09/24 17:43 Pulse Rate 79 06/09/24 17:43 Respiratory Rate 20 06/09/24 17:43 Blood Pressure 123/80 06/09/24 17:43 Pulse Oximetry 100 06/09/24 17:43 Oxygen Delivery Method Room Air 06/09/24 17:43 Medical Decision Making [facility] Narrative Medical decision making narrative: 33-year-old male presents here chief complaint of left ankle injury. He states he rolled it playing basketball. Soft tissue swelling is noted. Patient denies any previous fracture or trauma to this extremity. He is otherwise healthy. No other injuries noted. Soft tissue swelling the left lateral tibial area. He is able to ambulate. Patient states he took 800 mg ibuprofen prior to arrival. Differential Diagnosis Differential Diagnosis: fracture, sprain Medical Records Medical records reviewed: Yes I reviewed the patient's medical records Medical records narrative: 33-year-old male presents here chief complaint of left ankle injury. He states he rolled it playing basketball. Soft tissue swelling is noted. Patient denies any previous fracture or trauma to this extremity. He is otherwise healthy. No other injuries noted. Soft tissue swelling the left lateral tibial area. He is able to ambulate. Patient states he took 800 mg ibuprofen prior to arrival. Here chief complaint of left ankle injury. X-ray shows no acute fracture or dislocation. Patient was placed Tashi wrap and air splint by nursing staff extremity neurovascular tact for Nephril application. Patient will follow-up with Dr. Cruz at 1045 on June 11. Patient was dispensed home with crutches as well. Follow-up as indicated. Imaging Data ankle: Attestation: I have reviewed the pertinent imaging results. My impression: neg Discharge Plan Discharge Chief Complaint: Extremity Injury, Lower Clinical Impression: Ankle sprain and strain Patient Disposition: Home, Self-Care Time of Disposition Decision: 18:46 Condition: Good Prescriptions / Home Meds: New ibuprofen 800 mg tablet 800 mg PO Q8H PRN (Reason: pain) Qty: 20 0RF No Action buspirone 10 mg tablet 10 mg PO BID sertraline 100 mg tablet 100 mg PO DAILY hydroxyzine pamoate 25 mg capsule 25 mg PO BID PRN (Reason: anxiety) pantoprazole [Protonix] 40 mg tablet,delayed release (DR/EC) 40 mg PO DAILY Qty: 7 0RF ondansetron 4 mg tablet,disintegrating 4 mg PO Q6H PRN (Reason: nausea and vomiting) Qty: 12 0RF Print Language: Arabic Instructions: Ankle Sprain (ED), Crutch Instructions (ED), P.R.I.C.E. Treatment (ED) Referrals: Yumiko Mchugh, P[facility]ATER [Primary Care Provider] - 1 week
== END 2024-06-09 19:04 | disposition home or self-care (01) ==
PROVIDERS: Emergency Provider Emergency Medicine
DX: S93.402A Sprain of unspecified ligament of left ankle, initial encounter (principal); S96.912A Strain of unspecified muscle and tendon at ankle and foot level, left foot, initial encounter; X50.1XXA Overexertion from prolonged static or awkward postures, initial encounter; Y93.67 Activity, basketball
CPT/HCPCS: 73610; 73630; 99283